=== PATIENT | female | born 1975 | race Two or more races ===

== ENCOUNTER 2016-09-21 11:26 | Emergency (ER) | payer OTHER ==
[2016-09-21 11:32] VITALS: BP 131/88; PULSE 107; TEMP 98.7; BMI 19.9
--- NOTE | 2016-09-21 11:57 | PDOC ---
History of Present Illness - General Chief Complaint: Pain Stated Complaint: PCP SENT, LT SIDE PAIN Time Seen by Provider: 09/21/16 11:38 History Source: Patient Exam Limitations: No Limitations - History of Present Illness Initial Comments: CHIEF COMPLAINT: 40 y/o afebrile female with no significant pMH c/o pain to left lower back that radiates to left thigh and groin. HISTORY OF PRESENT ILLNESS: The patient states the pain started yesterday and is worsened with some movements. She denies f/c, n/v/d, rash, numbness/tingling , fall, trauma to back, hematuria, dysuria. The patient has not taken anything for the pain. Vital signs on arrival are notable for pulse of 107. REVIEW OF SYSTEMS: GENERAL/CONSTITUTIONAL: No fever/chills. No weakness. No weight change. HEAD, EYES, EARS, NOSE AND THROAT: No change in vision. No ear pain or discharge. No sore throat. CARDIOVASCULAR: No chest pain or shortness of breath. RESPIRATORY: No cough, wheezing, or hemoptysis. GASTROINTESTINAL: No abd pain, nausea, vomiting, diarrhea, constipation. GENITOURINARY: No dysuria, frequency, or change in urination. MUSCULOSKELETAL: +left lower back pain radiating to left leg. SKIN: No rash or easy bruising. NEUROLOGIC: No headache, vertigo, loss of consciousness, or loss of sensation. PHYSICAL EXAM: GENERAL: The patient is awake, alert, and fully oriented, in no acute distress. She is very well appearing, ambulatory, in NAD or obvious discomfort. HEAD: Normal with no signs of trauma. ENT: Pupils equal, round and reactive to light, extraocular movements intact, sclera anicteric, conjunctiva clear. Neck supple. LUNGS: Clear to auscultation bilaterally. Normal excursion. No respiratory distress or use of accessory muscles. CV: RRR, S1/S2, no MRG. Cap refill < 2 sec. ABDOMEN: Soft, non-distended, non-tender even to deep palpation, no hepatomegaly or splenomegaly, no masses. BACK: Reproducible lower back pain with palpation of left lower lumbar paravertebral muscles. No midline lumbar TTP or step offs. No CVA TTP b/l. EXTREMITIES: Normal range of motion, no edema. NEUROLOGICAL: Normal speech, normal gait. CN II-XII grossly intact. No saddle anesthesia. PSYCH: Normal mood, normal affect. SKIN: Warm, dry, normal turgor, no rashes or lesions noted. Past History - Past Medical History Allergies/Adverse Reactions: Allergies Allergy/AdvReac Type Severity Reaction Status Date / Time No Known Allergies Allergy Verified 09/21/16 11:28 Home Medications: Ambulatory Orders Cephalexin Monohydrate [Keflex -] 500 mg PO BID #14 capsule 09/21/16 Other medical history: denies - Immunization History Immunization Up to Date: Yes - Psycho/Social/Smoking Cessation Hx Anxiety: No Suicidal Ideation: No Smoking History: Never smoked Information on smoking cessation initiated: No Hx Alcohol Use: No Drug/Substance Use Hx: No Substance Use Type: None *Physical Exam - Vital Signs Last Vital Signs Temp Pulse Resp BP Pulse Ox 98.7 F 107 H 20 131/88 100 09/21/16 11:29 09/21/16 11:29 09/21/16 11:29 09/21/16 11:29 09/21/16 11:29 Medical Decision Making - Medical Decision Making A/P: 40 y/o female with musculoskeletal LBP. plan is as follows: 1. HCG 2. UA/culture UA with 3+ blood, 2+ leuks Will treat for UTI Gave first dose of keflex Ordered PO motrin for pain Suggested motrin every 6 hours with food for pain, plenty of fluids and f/u with pcp within 1 week. Pt instruted to return to the ER with any worsening or concerning symptoms. The patient verbalizes understanding of all instructions, has no further questions and is awaiting discharge. *DC/Admit/Observation/Transfer Diagnosis at time of Disposition: UTI (urinary tract infection) Qualifiers: Urinary tract infection type: acute cystitis Hematuria presence: with hematuria Qualified Code(s): N30.01 - Acute cystitis with hematuria Low back pain Qualifiers: Chronicity: acute Back pain laterality: left Sciatica presence: with sciatica Sciatica laterality: sciatica of left side Qualified Code(s): M54.42 - Lumbago with sciatica, left side - Discharge Dispostion Disposition: HOME Condition at time of disposition: Good - Referrals Referrals: Natalia Limon MD [Primary Care Provider] - Call tomorrow - Patient Instructions Printed Discharge Instructions: DI for Urinary Tract Infection (UTI), DI for Low Back Pain Additional Instructions: Discharge Instructions: -Drink at least 64oz of water daily -Take antibiotics as prescribed -Take 400mg of Motrin every 6 hours with food for pain -Follow up with your doctor tomorrow -Return to the ER with any worsening or concerning symptoms
[2016-09-21 12:10] LABS: URINE APPEARANCE CLEAR; URINE BILIRUBIN NEGATIVE (NEGATIVE); URINE COLOR STRAW; URINE GLUCOSE (UA) NEGATIVE (NEGATIVE); URINE KETONE NEGATIVE (NEGATIVE); URINE NITRITE NEGATIVE (NEGATIVE); URINE PROTEIN NEGATIVE (NEGATIVE); URINE UROBILINOGEN NEGATIVE E.U./dl (0.2-1.0)
[2016-09-21 12:11] LABS: URINE BLOOD 3+ (NEGATIVE); URINE LEUK ESTERASE 2+ (NEGATIVE)
[2016-09-21 12:23] LABS: URINE MUCUS RARE; URINE RBC 55 /hpf (0-3); URINE WBC 24 /hpf (3-5)
[2016-09-21] MEDS ORDERED: IBUPROFEN 600 MG TABLET (FP) PO ONE ×2 (12:50→13:06)
[2016-09-21] MEDS ORDERED: CEPHALEXIN MONOHYDRATE 500 MG CAPSULE (UD) PO ONE (12:50)
[2016-09-21] MEDS ORDERED: CEPHALEXIN MONOHYDRATE 500 MG CAPSULE (UD) ONE (13:07)
== END 2016-09-21 13:14 | disposition home or self-care (01) ==
LOC: JERFT 11:26
DX: M54.42 Lumbago with sciatica, left side (principal); N30.01 Acute cystitis with hematuria
CPT/HCPCS: 81003; 81015; 84703; 87086; 99281-25

== ENCOUNTER 2017-08-01 17:00 | Emergency (ER) | payer OTHER ==
--- NOTE | 2017-08-01 17:09 | PDOC ---
Rapid Medical Evaluation Time Seen by Provider: 08/01/17 17:08 Medical Evaluation: Allergies Allergy/AdvReac Type Severity Reaction Status Date / Time No Known Allergies Allergy Verified 09/21/16 11:28 08/01/17 17:08 I have performed a brief in person evaluation of this patient. The patient presents with chief complaint of : back pain with left flank pain and dark colored urine Pertinent PE findings: no distress stable vitals I have ordered the following: urine preg, UA urine culture The patient will proceed to the ER for further evaluation.
[2017-08-01 17:10] VITALS: BP 137/95; PULSE 95; TEMP 98.1; BMI 19.9
[2017-08-01 17:34] LABS: URINE APPEARANCE SLCLOUDY; URINE BILIRUBIN NEGATIVE (NEGATIVE); URINE BLOOD NEGATIVE (NEGATIVE); URINE COLOR YELLOW; URINE GLUCOSE (UA) NEGATIVE (NEGATIVE); URINE KETONE NEGATIVE (NEGATIVE); URINE NITRITE NEGATIVE (NEGATIVE); URINE PROTEIN NEGATIVE (NEGATIVE); URINE UROBILINOGEN NEGATIVE mg/dL (0.2-1.0)
--- NOTE | 2017-08-01 17:35 | PDOC ---
History of Present Illness - General Chief Complaint: Urinary Problem Stated Complaint: PAIN Time Seen by Provider: 08/01/17 17:08 History Source: Patient Exam Limitations: No Limitations - History of Present Illness Initial Comments: 08/01/17 17:40 My Chief complaint: dark urine, urinating more frequently,hard to hold, pain with urination, left lower back pain History of present illness: Patient is a 41-year-old female with no significant medical history here today complaining of noticing that her urine is darker than usual with frequency, urgency and dysuria for the last few days with lower back pain on left side. Patient denies any radiation of pain down her legs. Patient denies any chills, fever, nausea or vomiting. Patient reports that she cannot be she had a tubal ligation. Pt. reports having a fowl smelling vaginal discharge 4 days ago. Pt. had sex 1 wk ago, condom fell off 08/01/17 18:18 Timing/Duration: getting worse Severity: moderate Associated Symptoms: reports: other (dark urine, left flank pain, frequency, urgency and dysuria ) Past History - Past Medical History Allergies/Adverse Reactions: Allergies Allergy/AdvReac Type Severity Reaction Status Date / Time almond oil Allergy Itching Verified 08/01/17 17:10 kiwi Allergy Itching Verified 08/01/17 17:10 peanut Allergy Itching Verified 08/01/17 17:10 Home Medications: Ambulatory Orders Metronidazole 0.75% Vag. Gel [Metrogel 0.75% *Vaginal Gel* -] 1 applic VG HS #1 tube 08/01/17 Nitrofurantoin Monohyd/M-Cryst [Macrobid -] 100 mg PO BID #14 capsule 08/01/17 Phenazopyridine HCl [Pyridium] 200 mg PO TID #6 tablet 08/01/17 COPD: No Other medical history: NONE - Immunization History Immunization Up to Date: Yes - Suicide/Smoking/Psychosocial Hx Smoking History: Never smoked Information on smoking cessation initiated: No Hx Alcohol Use: No Drug/Substance Use Hx: No Substance Use Type: None Review of Systems - Review of Systems Able to Perform ROS?: Yes Constitutional: No: Symptoms Reported HEENTM: No: Symptoms Reported Respiratory: No: Symptoms reported Cardiac (ROS): No: Symptoms Reported : Yes: Dysuria, Frequency, Urgency, Other (fishy smelling vagina 4 days). No : Hematuria Musculoskeletal: Yes: Back Pain (left lower lateral ) Integumentary: No: Symptoms Reported Neurological: No: Symptoms reported *Physical Exam - Vital Signs Last Vital Signs Temp Pulse Resp BP Pulse Ox 98.1 F 95 H 20 137/95 99 08/01/17 17:07 08/01/17 17:07 08/01/17 17:07 08/01/17 17:07 08/01/17 17:07 - Physical Exam General Appearance: Yes: Appropriately Dressed Respiratory/Chest: positive: Lungs Clear, Normal Breath Sounds. negative: Chest Tender, Respiratory Distress Cardiovascular: positive: Regular Rhythm, Regular Rate, S1, S2 Female Pelvic Exam: positive: normal external exam, cervical os closed, normal size ovaries, discharge (grayish thick ), other (cervix friable, suprapubic tenderness mid, B/L ). negative: CMT, lesions, Bartholin mass, Scalene Gland, uterus, Urethra Gastrointestinal/Abdominal: positive: Normal Bowel Sounds, Soft, Tenderness ( supra pubic area mid/b/l ). negative: Organomegaly, Distended, Guarding, Rebound Musculoskeletal: positive: Normal Inspection, Other (left lower back laterally ) . negative: CVA Tenderness, CVA Tenderness (R), CVA Tenderness (L), Decreased Range of Motion, Vertebral Tenderness Integumentary: positive: Normal Color Neurologic: positive: Alert, Normal Response, Responsive Medical Decision Making - Medical Decision Making 08/01/17 17:43 Patient is a 41-year-old female with no significant medical history here today complaining of noticing that her urine is darker than usual with frequency, urgency and dysuria for the last few days with lower back pain on left side. Patient denies any radiation of pain down her legs. Patient denies any chills, fever, nausea or vomiting. Patient reports that she cannot be she had a tubal ligation. r/o UTI r/o pyelonephritis PLAN: urinalysis urine C & S genital culture Chlamydia/GC amphilication HCG urine negative 08/01/17 17:50 08/01/17 18:01 Laboratory Tests 08/01/17 17:15 Urine Color Yellow Urine Appearance Slcloudy Urine pH 6.0 Ur Specific [place] 1.018 Urine Protein Negative Urine Glucose (UA) Negative Urine Ketones Negative Urine Blood Negative Urine Nitrite Negative Urine Bilirubin Negative Urine Urobilinogen Negative Urine HCG, Qual Negative 08/01/17 18:03 08/01/17 18:43 will treat with metrogel 0.75% HS intravaginally for 5 days macrobid 100 mg bid for 7 days pyridium 200 mg tid # 6 tabs *DC/Admit/Observation/Transfer Diagnosis at time of Disposition: Cystitis Vaginitis Qualifiers: Chronicity: acute Qualified Code(s): N76.0 - Acute vaginitis - Discharge Dispostion Disposition: HOME Condition at time of disposition: Stable - Referrals Referrals: Natalia Limon MD [Primary Care Provider] - - Patient Instructions Additional Instructions: FOLLOW UP WITH DIFFERENTIAL TESTER SOON POSSIBLE RETURN TO EMERGENCY ROOM IF ANY FEVER, CHILLS, NAUSEA, VOMITING OR WORSENING PELVIC DISCOMFORT OR ANY OTHER SYMPTOMS DEVELOP DRINK A LOT OF FLUIDS WE WILL CALL YOU IF PENDING CULTURES ARE POSITIVE AND YOU WILL NEED ADDITIONAL TREATMENT PATIENT VOICED UNDERSTANDING OF DISCHARGE INSTRUCTIONS AND ALL QUESTIONS WERE ANSWERED - Post Discharge Activity
[2017-08-01 21:09] LABS: URINE LEUK ESTERASE Negative (NEGATIVE)
== END 2017-08-01 18:53 | disposition home or self-care (01) ==
LOC: JERFT 17:00
DX: N30.00 Acute cystitis without hematuria (principal); N76.0 Acute vaginitis
CPT/HCPCS: 36415; 81003; 84703; 87070; 87086; 87205; 87491; 87591; 99281-25

== ENCOUNTER 2017-11-07 16:26 | Emergency (ER) | payer OTHER ==
[2017-11-07 16:42] VITALS: BP 124/76; PULSE 84; TEMP 98.2; BMI 19.9
--- NOTE | 2017-11-07 16:42 | PDOC ---
Rapid Medical Evaluation Time Seen by Provider: 11/07/17 16:38 Medical Evaluation: Allergies Allergy/AdvReac Type Severity Reaction Status Date / Time almond oil Allergy Itching Verified 08/01/17 17:10 kiwi Allergy Itching Verified 08/01/17 17:10 peanut Allergy Itching Verified 08/01/17 17:10 11/07/17 16:38 I have performed a brief in-person evaluation of this patient. The patient presents with a chief complaint of: left back pain since last night , urinary frequency the night before, LMP 2/5, denies fever/chills/nausea/ vomiting Pertinent physical exam findings: +L CVA tenderness I have ordered the following: urine The patient will proceed to the ED for further evaluation. Discharge Disposition - Diagnosis Left flank pain - Referrals - Patient Instructions - Post Discharge Activity
[2017-11-07] MEDS ORDERED: IBUPROFEN 600 MG TABLET (FP) PO ONE ×2 (17:12→17:15)
--- NOTE | 2017-11-07 17:18 | PDOC ---
History of Present Illness - General Chief Complaint: Back Pain Stated Complaint: PAIN Time Seen by Provider: 11/07/17 16:38 Exam Limitations: No Limitations - History of Present Illness Initial Comments: 11/07/17 17:13 Patient came for evaluation of worsening back pain. States Sunday was dancing with high heels and had onset of pain Sunday afternoon. Has never suffered from any back issue or strain. Also curious about frequency with her urination. Although has never also had a urinary tract infection. Denies fever, nausea vomiting, no vaginal complaints, bowels are working normally. Severity: reports: mild, moderate Pain Location: reports: back Method of Injury: Yes: unknown Modifying Factors: improves with: None Loss of Consciousness: no loss of consciousness Past History - Travel Traveled outside of the country in the last 30 days: No Close contact w/someone who was outside of country & ill: No - Past Medical History Allergies/Adverse Reactions: Allergies Allergy/AdvReac Type Severity Reaction Status Date / Time almond oil Allergy Itching Verified 11/07/17 16:39 kiwi Allergy Itching Verified 11/07/17 16:39 peanut Allergy Itching Verified 11/07/17 16:39 Home Medications: Ambulatory Orders Cyclobenzaprine HCl 10 mg PO Q8H PRN #14 tablet 11/07/17 COPD: No Hypercholesterolemia: Yes - Immunization History Immunization Up to Date: Yes - Suicide/Smoking/Psychosocial Hx Smoking History: Never smoked Hx Alcohol Use: No Drug/Substance Use Hx: No Substance Use Type: None Trauma Specific PMHX - Complaint Specific PMHX Back Injury: No Neck Injury: No Review of Systems - Review of Systems Able to Perform ROS?: Yes Is the patient limited Tajik proficient: Yes Constitutional: Yes: Symptoms Reported, Malaise. No: See HPI, Fever HEENTM: Yes: Symptoms Reported Musculoskeletal: Yes: Symptoms Reported, See HPI, Muscle Pain Integumentary: No: Symptoms Reported All Other Systems: Reviewed and Negative *Physical Exam - Vital Signs Last Vital Signs Temp Pulse Resp BP Pulse Ox 98.2 F 84 19 124/76 100 11/07/17 16:39 11/07/17 16:39 11/07/17 16:39 11/07/17 16:39 11/07/17 16:39 - Physical Exam General Appearance: Yes: Nourished, Appropriately Dressed, Apparent Distress, Mild Distress HEENT: positive: FRANK, Normal ENT Inspection, TMs Normal, Pharynx Normal Neck: positive: Supple. negative: Tender, Lymphadenopathy (R), Lymphadenopathy (L) Respiratory/Chest: positive: Lungs Clear, Normal Breath Sounds Gastrointestinal/Abdominal: positive: Soft. negative: Tender Musculoskeletal: positive: Normal Inspection, Muscle Spasm (palpable tension and reproduce pain to the paravertebral spinous muscles at waist line and lower thoracic musculature. Flexion and extension at waist is intact although reproduces pain upon standing upright. Neurovascular intact to feet and ambulatory without unsteadiness.) Extremity: positive: Normal Capillary Refill, Normal Range of Motion Integumentary: positive: Normal Color, Dry Neurologic: positive: promotional marketing agent II-XII NML intact, Fully Oriented, Alert, Normal Mood/ Affect, Normal Response, Motor Strength /5 Progress Note - Progress Note Progress Note: Back strain, will treat with NSAIDs and cyclobenzaprine *DC/Admit/Observation/Transfer Diagnosis at time of Disposition: Back strain Qualifiers: Encounter type: initial encounter Qualified Code(s): S39.012A - Strain of muscle, fascia and tendon of lower back, initial encounter - Discharge Dispostion Disposition: HOME Condition at time of disposition: Stable Admit: No - Referrals Referrals: Fidel Champion MD [Staff Physician] - - Patient Instructions Printed Discharge Instructions: DI for Back Strain or Sprain Additional Instructions: Rest, no heavy lifting or exercise until pain is resolved Hot soaks to neck and low back as often as possible/hot showers or Jacuzzis No massage or therapy until spasm is gone Continue ibuprofen 2-200 mg tablets every 6 hours for the next 3 days then as needed for pain and swelling Cyclobenzaprine 1-10mg every 8 hours as needed for spasm If not significant improvement within 24 hours with medication and rest regime, followup with private physician for change in medications and /or therapy. - Post Discharge Activity Forms/Work/School Notes: Back to Work
[2017-11-07 17:27] LABS: HCG,QUALITATIVE URINE NEGATIVE
[2017-11-07 17:28] LABS: URINE APPEARANCE SLCLOUDY; URINE BILIRUBIN NEGATIVE (NEGATIVE); URINE BLOOD NEGATIVE (NEGATIVE); URINE COLOR YELLOW; URINE GLUCOSE (UA) NEGATIVE (NEGATIVE); URINE KETONE TRACE (NEGATIVE); URINE NITRITE NEGATIVE (NEGATIVE); URINE PROTEIN NEGATIVE (NEGATIVE)
[2017-11-07 17:31] LABS: URINE LEUK ESTERASE 1+ (NEGATIVE)
[2017-11-07 18:25] LABS: EPI CELLS MODERATE /HPF (FEW); URINE MUCUS RARE
== END 2017-11-07 17:40 | disposition home or self-care (01) ==
LOC: JERFT 16:26
DX: S39.012A Strain of muscle, fascia and tendon of lower back, initial encounter (principal); X58.XXXA Exposure to other specified factors, initial encounter; Y93.89 Activity, other specified; Y92.9 Unspecified place or not applicable
CPT/HCPCS: 81003; 81015; 84703; 87086; 99281-25

== ENCOUNTER 2018-06-15 12:38 | Emergency (ER) | payer OTHER ==
[2018-06-15 12:47] VITALS: BMI 18.8
--- NOTE | 2018-06-15 12:55 | PDOC ---
History of Present Illness - General Chief Complaint: Nausea/Vomiting Stated Complaint: HEADACHE Time Seen by Provider: 06/15/18 12:55 History Source: Patient Exam Limitations: No Limitations - History of Present Illness Initial Comments: 06/15/18 13:15 42 -year-old female with no past medical history, including headaches, presented to Emergency Department for a headache since 4 AM this morning. She describes her headache to be located to the top of her head, constant, pounding , non-radiating, currently 8/10, aggravated by moving/smells/light, alleviated by darkness/rest. She states that the headache woke her up from sleep, 8/10 at that time, became a 10/10 at 11 AM, and she decided to come to the emergency department that point. She states she did not take any medicine for her headache today. LMP - two days ago. She denies changes to her vision, fever, chills, diarrhea, weakness of her extremities, numbness, tingling, neck pain, chest pain, shortness of breath. Allergies - NKDA Past History - Past Medical History Allergies/Adverse Reactions: Allergies Allergy/AdvReac Type Severity Reaction Status Date / Time almond oil Allergy Itching Verified 11/07/17 16:39 kiwi Allergy Itching Verified 11/07/17 16:39 peanut Allergy Itching Verified 11/07/17 16:39 Home Medications: Ambulatory Orders NK [No Known Home Medication] 06/15/18 COPD: No Hypercholesterolemia: Yes - Immunization History Immunization Up to Date: Yes - Suicide/Smoking/Psychosocial Hx Smoking History: Never smoked Hx Alcohol Use: No Drug/Substance Use Hx: No Substance Use Type: None Review of Systems - Review of Systems Able to Perform ROS?: Yes Comments:: 06/15/18 13:17 General: admits to generalized weakness. denies fever, chills, night sweats. HEENT: denies sore throat, rhinorrhea, ear pain. Heart: denies chest pain, palpitations, syncope, lower extremity swelling, diaphoresis. Respiratory: denies shortness of breath, cough, sputum production, hemoptysis. Abdomen: admits to nausea. denies abdominal pain, vomiting, diarrhea, constipation, blood in stool. : denies dysuria, increased urinary frequency, hematuria, urinary incontinence , flank pain. Back: denies back pain. Musculoskeletal: denies joint pain, muscle pain, joint swelling. Neurological: admits to headache. denies dizziness, numbness, tingling, weakness. Skin: denies rash, laceration, abrasion. *Physical Exam - Vital Signs Last Vital Signs Temp Pulse Resp BP Pulse Ox 98.3 F 80 20 160/85 99 06/15/18 12:45 06/15/18 12:45 06/15/18 12:45 06/15/18 12:45 06/15/18 12:45 - Physical Exam Comments: 06/15/18 13:19 Constitutional: Well-nourished, Well-developed, appearing stated age. non-toxic appearance. HEENT: head is normocephalic, atraumatic. EOMI. PERRLA. Neck: supple. full ROM. no neck stiffness. no nuchal rigidity. no midling c- spine tenderness. no paraspinal c-spine tenderness. Heart: regular rhythm. no murmurs, rubs or gallops. Lungs: clear to auscultation bilaterally. no crackles, rhonchi or wheezing. no stridor. Abdomen: soft, nontender. normal bowel sounds. no rebound, guarding, masses. Extremities: Peripheral pulses intact. No lower extremity edema. Neurological: Alert. Oriented x3. CN2-12 intact. 5/5 strength all extremities. Full sensation all extremities and bilateral face. Romberg negative. No ataxia. Gait normal. Psych: awake, alert, oriented x3. Follows commands. Answers questions appropriately. ED Treatment Course - LABORATORY CBC & Chemistry Diagram: 06/15/18 14:27 06/15/18 14:27 Medical Decision Making - Medical Decision Making 06/15/18 13:20 42-year-old female with no past medical history, including headaches, presented to Emergency Department for a headache since 4 AM this morning. Gradual progression by history. Fully neurologically intact. No neck stiffness. No fevers/chills. Initial Vital Signs Temp Pulse Resp BP Pulse Ox 98.3 F 80 20 160/85 99 06/15/18 12:45 06/15/18 12:45 06/15/18 12:45 06/15/18 12:45 06/15/18 12:45 Afebrile. Hypertensive, possibly secondary to pain. No tachypnea. No hypoxia on room air. New onset headache, no prior imaging. - Pending serum test - Pending CT head SAH on differential, non-toxic appearance, migraine-like symptoms. Will reassess after medication administration. Reglan, Tylenol, Benadryl, 1L NS Bolus ordered for headache. 06/15/18 15:35 Serum test negative. Pt reassessed, states headache is a /10. CT head - negative Pt does not have PCP. An appointment for Sunday at 0200 PM has been set up for her at the [facility] system. I discussed the importance of attending this appointment with her, she expressed she understood. I discussed return precautions with her, she stated she understood. I removed the IV from her left AC. Vital Signs Temperature 98.1 F 06/15/18 15:58 Pulse Rate 72 06/15/18 15:58 Respiratory Rate 17 06/15/18 15:58 Blood Pressure 126/73 06/15/18 15:58 O2 Sat by Pulse Oximetry (%) 98 06/15/18 15:58 Afebrile. No tachycardia. No tachypnea. HTN resolved with pain reduction. No hypoxia on room air. *DC/Admit/Observation/Transfer Diagnosis at time of Disposition: Headache - Discharge Dispostion Disposition: HOME Condition at time of disposition: Stable Decision to Admit order: No - Referrals - Patient Instructions Printed Discharge Instructions: DI for Headache Additional Instructions: You were seen today for headache. Your head CT was normal. Take Tylenol over the counter for any future headache. Take as directed on package. Drink lots of fluids, like water or gatorade, to stay hydrated. I have given you a referral and appointment for a primary care doctor at our clinic system, [facility]. Attend your appointment for SundayJune 19 at 02:00 PM. Phone number - [phone] Return to the Emergency Department for sudden headache that does not go away with Tylenol, weakness, numbness, tingling, visual changes, facial drooping, problems speaking, fever, chills, nausea, vomiting, increasing pain, or any new , worsening or concerning symptoms. Print Language: SWEDISH - Post Discharge Activity Forms/Work/School Notes: Back to Work
--- NOTE | 2018-06-15 13:07 | PDOC ---
Attending Attestation - HPI HPI: 06/15/18 13:49 The patient is a 42-year-old female with no significant past medical history presents to the emergency department with a headache. The patient states around 4:00 am today she was woken up from sleep with a parietal/occipital region headache, pounding in quality, with the severity of 8/10 initially. The patient states she was at work [employer] when the severity increased to 10/10, thats aggravated with light, smell, and sound. The patient reports associated concern of nausea, denies vomiting, diarrhea, or constipation. The patient reports she was at a salon yesterday getting her hair colored. Denies taking any medication today. Denies hx of a headache, fever, chills, daily medication use or dietary supplement use, increase in stress, head trauma or injury, neck pain, falls, or alcohol use. Allergies: NKA Social history: No past or present use of tobacco, alcohol or recreational drug use. Surgical history: None reported PCP: None reported. - Physicial Exam PE: 06/15/18 13:49 GENERAL: nontoxic appearing, patient appears uncomfortable, tearful. Awake, alert, and fully oriented, in no acute distress HEAD: No signs of trauma EYES: PERRLA, EOMI, sclera anicteric, conjunctiva clear ENT: Auricles normal inspection, hearing grossly normal, nares patent, oropharynx clear without exudates. Moist mucosa NECK: no menginal signs, no nuchal rigidity. Normal ROM, supple, no lymphadenopathy, JVD, or masses LUNGS: Breath sounds equal, clear to auscultation bilaterally. No wheezes, and no crackles HEART: Regular rate and rhythm, normal S1 and S2, no murmurs, rubs or gallops ABDOMEN: Soft, nontender, normoactive bowel sounds. No guarding, no rebound. No masses EXTREMITIES: Normal range of motion, no edema. No clubbing or cyanosis. No cords, erythema, or tenderness NEUROLOGICAL: Neuro intact. Cranial nerves II through XII grossly intact. Normal speech, normal gait SKIN: Warm, Dry, normal turgor, no rashes or lesions noted. - Medical Decision Making 06/15/18 13:50 Documentation prepared by Ivon Vasquez, acting as medical doctor md/medical director for Radhika Sheldon DO. <Ivon Vasquez - Last Filed: 06/15/18 13:48> - Resident Resident Name: Gosia Eason - ED Attending Attestation I have performed the following: I have examined & evaluated the patient, The case was reviewed & discussed with the resident, I agree w/resident's findings & plan, Exceptions are as noted - Medical Decision Making 06/15/18 13:07 I, Dr. Radhika Sheldon, DO, attest that this document has been prepared under my direction and personally reviewed by me in its entirety. I further attest, that it accurately reflects all work, treatment, procedures and medical decision -making performed by me. 06/15/18 13:21 a/p: 42yo female with jacques today that started at 4am -woke her up from sleep -assoc with photophobia and phonophobia -assoc with nausea -no trauma. no etoh use -neuro intact -no meningeal signs -pt appears uncomfortable -did not try meds at home -suspect migraine jacques -will send labs, head ct (no prior hx of jacques or head ct) to eval for acute intracranial process -suspect slightly elevated BP from pain -will medicate with ivf, reglan, benadryl -will monitor and repeat neuro exam 06/15/18 19:30 pt feeling much better head ct negative labs reviewed and stable stable for d/c to home <Radhika Sheldon - Last Filed: 06/15/18 19:31>
[2018-06-15] MEDS ORDERED: METOCLOPRAMIDE HCL INJECTION 10 MG/2 ML VIAL IVPUSH ONE (13:10)
[2018-06-15] MEDS ORDERED: ACETAMINOPHEN 1000 MG/100 ML VIAL (NON FORMULARY) IVPB ONE (13:10)
[2018-06-15] MEDS ORDERED: SODIUM CHLORIDE 1,000 ML IV STA (13:12)
[2018-06-15] MEDS ORDERED: METOCLOPRAMIDE HCL INJECTION 10 MG/2 ML VIAL ONE (13:13)
[2018-06-15] MEDS ORDERED: ACETAMINOPHEN INJECTION 100 ML IVPB ONE (13:13)
[2018-06-15 14:29] VITALS: PULSE 72
[2018-06-15 14:46] LABS: BASO % 0.6 % (0-2.0); EOS % 1.2 % (0-4.5); HEMOGLOBIN 12.6 GM/dL (10.7-15.3); LYMPH % 14.9 % (8-40); MCH 31.2 pg (25.7-33.7); MCHC 33.2 g/dl (32.0-36.0); MEAN PLT VOLUME 9.7 fl (7.5-11.1); MONO % 7.2 % (3.8-10.2); NEUT % 76.1 % (42.8-82.8); PLATELET COUNT 232 K/MM3 (134-434); RBC 4.04 M/mm3 (3.60-5.2); RDW 12.8 % (11.6-15.6); WHITE BLOOD COUNT 6.5 K/mm3 (4.0-10.0)
[2018-06-15 15:00] LABS: INR 0.97 (0.83-1.09); PROTHROMBIN TIME (PATIENT) 11.5 SEC (9.7-13.0)
[2018-06-15 15:03] LABS: ACTIVATED PTT 31.2 SECONDS (25.2-36.5)
[2018-06-15 15:13] LABS: ALBUMIN 3.4 g/dl (3.4-5.0); ALK PHOS 48 U/L (45-117); ANION GAP 5 MMOL/L (8-16); BILIRUBIN,TOTAL 0.3 mg/dL (0.2-1); BLOOD UREA NITROGEN 14 mg/dL (7-18); CHLORIDE 109 mmol/L (98-107); CO2 25 mmol/L (21-32); CREATININE 0.6 mg/dL (0.55-1.3); GLUCOSE,RANDOM 103 mg/dL (74-106); MAGNESIUM 2.1 mg/dL (1.8-2.4); POTASSIUM 3.8 mmol/L (3.5-5.1); SGOT/AST 17 U/L (15-37); SGPT/ALT 13 U/L (13-61); SODIUM 138 mmol/L (136-145)
[2018-06-15 15:59] VITALS: BP 126/73; TEMP 98.1
== END 2018-06-15 15:59 | disposition home or self-care (01) ==
LOC: JER 12:38
PROC: 3E0337Z Introduction of Electrolytic and Water Balance Substance into Peripheral Vein, Percutaneous Approach (ICD-10-PCS; principal; 2018-06-15)
PROC: 3E033GC Introduction of Other Therapeutic Substance into Peripheral Vein, Percutaneous Approach (ICD-10-PCS; 2018-06-15)
PROC: 3E033GC Introduction of Other Therapeutic Substance into Peripheral Vein, Percutaneous Approach (ICD-10-PCS; 2018-06-15)
PROC: 3E033NZ Introduction of Analgesics, Hypnotics, Sedatives into Peripheral Vein, Percutaneous Approach (ICD-10-PCS; 2018-06-15)
DX: R51 Headache (principal)
CPT/HCPCS: 36415; 70450-TC; 80053; 83735; 84703; 85025; 85610; 85730; 96361; 96374; 96375; 99282-25; J0131; J7030